=== PATIENT | female | born 1950 | race Caucasian/White ===

== ENCOUNTER 2017-07-07 21:34 | Emergency (ER) | payer MEDICARE ==
[2017-07-07] MEDS ORDERED: Ibuprofen 800 MG TAB ONE (21:52)
== END 2017-07-07 22:02 | disposition home or self-care (01) ==
LOC: SCSER 21:34
DX: H66.91 Otitis media, unspecified, right ear (principal); H72.91 Unspecified perforation of tympanic membrane, right ear; I10 Essential (primary) hypertension
CPT/HCPCS: 99282